=== PATIENT | male | born 1960 | race Caucasian/White ===

== ENCOUNTER 2018-01-12 14:19 | Outpatient (CLI) | payer BC ==
--- NOTE | 2018-01-12 15:56 | RAD ---
RIGHT SHOULDER ARTHROGRAM: HISTORY: A 57-year-old male with a history of right shoulder pain. Rotator cuff tear. M25.511. TECHNIQUE: Following informed consent, the right shoulder was prepped and draped in the usual sterile fashion. Local anesthesia was obtained with 1% Xylocaine. A 22 gauge spinal needle was introduced into the an terior-superior glenohumeral joint. A mixture of iodinated and Gadolinium contrast media was injecte d. Spot films confirmed an intraarticular location. The patient tolerated the procedure well and wa s moved to MRI for post arthrogram MRI to follow. No definite extension of contrast into the subacro mial bursa. Marked arthrosis changes of the AC joint. IMPRESSION: 1. Successful right shoulder arthrogram. 2. Marked arthrosis changes, right acromioclavicular joint. POS: [facility]
--- NOTE | 2018-01-12 16:47 | MRI ---
RIGHT SHOULDER MRI WITH POST ARTHROGRAM GADOLINIUM CONTRAST: Date: 01/12/18 HISTORY: 57-year-old male with history of right shoulder pain and loss of range of motion and strength for 4 m onths. Exam done following a right shoulder arthrogram. FINDINGS: Marked AC joint arthrosis changes are noted with prominent subchondral cystic changes and some abnorm al marrow signal in the distal clavicle and adjacent acromion with some downsloping of the anterior a cromion and mild downsloping of the lateral acromion. There is an irregular full thickness tear of th e supraspinatus tendon at the insertion with retraction back to the level of the humeral dome, as wel l as some associated delamination extending into the myotendinous region. Small low grade undersurfac e tear of the infraspinatus tendon at the insertion. There is some thickening and increased signal of the subscapularis tendon, evidence for some tendinopathy, with a possible very small low grade parti al thickness undersurface tear. The biceps tendon appears intact. There is some minimal abnormal incr eased signal involving the labral chondral junction region of the central and posterior labrum, evide nce for a SLAP type tear with some probable posterior extension, with some associated mild flattening and deformity of the posterior labrum. IMPRESSION: Full thickness, minimally retracted, supraspinatus tendon tear with some associated delamination. Sev ere arthrosis and degenerative changes of the AC joint. Probable SLAP tear with minimal posterior ext ension and some superior posterior labral free edge blunting. POS: [facility]
== END 2018-01-12 14:20 | disposition home or self-care (01) ==
LOC: RAD 14:19
PROVIDERS: ATTEND Orthopaedic Surgery
DX: M75.121 Complete rotator cuff tear or rupture of right shoulder, not specified as traumatic (principal); M19.011 Primary osteoarthritis, right shoulder
CPT/HCPCS: 23350

== ENCOUNTER 2018-01-27 15:36 | Outpatient (CLI) | payer BC ==
[2018-01-27 17:08] LABS: #Basophils 0.1 thou/uL (0.0-0.2); #Eosinphils 0.2 thou/uL (0.0-0.7); #Lymphocytes 2.1 thou/uL (1.20-3.40); #Monocytes 0.7 thou/uL (0.11-0.59); #Neutrophils 4.8 thou/uL (1.40-6.50); %Basophils 1.1 % (0.0-1.0); %Eosinophils 2.9 % (0.0-10.0); %Lymphocytes 26.3 % (21.0-51.0); %Monocytes 8.8 % (0.0-10.0); %Neutrophils 60.9 % (42.0-75.0); Hemoglobin 15.3 g/dL (14.0-18.0); Mean Corpuscular HGB CONC 33.9 g/dL (32.0-36.0); Mean Corpuscular Hemoglobin 30.4 pg (27.0-31.0); Mean Corpuscular Volume 89.5 fL (78.0-98.0); Mean Platelet Volume 8.1 fL (7.4-10.4); Platelet Count 224 thou/uL (130-400); RBC Distribution Width 11.7 % (11.5-14.5); Red Blood Cell (RBC) Count 5.03 mill/uL (4.70-6.10); White Blood Cell (WBC) Count 7.9 thou/uL (4.8-10.8)
[2018-01-27 17:33] LABS: Anion Gap 12 mmol/L (10-20); BUN (Urea Nitrogen) 27 mg/dL (8.4-25.7); Calc. Creatinine Clearance 0 mL/min (70-130); Calcium 10.3 mg/dL (7.8-10.44); Carbon Dioxide 28 mmol/L (22-29); Chloride 105 mmol/L (98-107); Estimated GFR-MDRD 51; Glucose 98 mg/dL (70-105); Potassium 4.2 mmol/L (3.5-5.1); Sodium 141 mmol/L (136-145)
--- NOTE | 2018-01-29 07:37 | EKG ---
Test Reason : Blood Pressure : / mmHG Vent. Rate : 077 BPM Atrial Rate : 077 BPM P-R Int : 156 ms QRS Dur : 096 ms QT Int : 370 ms P-R-T Axes : 044 004 042 degrees QTc Int : 418 ms Normal sinus rhythm with sinus arrhythmia Normal ECG When compared with ECG of 06-APR-2016 07:33, T wave inversion no longer evident in Inferior leads Confirmed by DR. He MCKINNEY ([id number]) on 01/29/2018 7:37:44 AM Referred By: DELMA Confirmed By:DR. He MCKINNEY
== END 2018-01-27 15:37 | disposition home or self-care (01) ==
LOC: LABBT 15:36
PROVIDERS: ATTEND Orthopaedic Surgery
DX: Z01.818 Encounter for other preprocedural examination (principal); M75.101 Unspecified rotator cuff tear or rupture of right shoulder, not specified as traumatic
CPT/HCPCS: 80048; 85025; 93005; 93010

== ENCOUNTER 2018-01-28 06:14 | Day surgery (SDC) | payer BC ==
[2018-01-27 16:02] VITALS: BMI 28.2
[2018-01-28] MEDS ORDERED: Ropivacaine 0.5% HCl/PF (150 MG/30 ML VIAL) ONE (06:38)
[2018-01-28] MEDS ORDERED: Fentanyl 100 MCG/2 ML VIAL ONE (06:38)
[2018-01-28] MEDS ORDERED: Midazolam HCl 2 mg/2 ml Vial ONE (06:38)
[2018-01-28] MEDS ORDERED: Ropivacaine 0.2% HCl/PF 20 ML ONE (06:38)
[2018-01-28] MEDS ORDERED: Lidocaine 1% (PF) 30 ML VIAL ONE (06:38)
[2018-01-28] MEDS ORDERED: Bupivacaine/Epinephrine 0.25% 30 ML VIAL ONE (06:45)
[2018-01-28] MEDS ORDERED: CEFAZOLIN/Water 2 GM/20 ML SYRINGE ONE (07:02)
[2018-01-28] MEDS ORDERED: Ketorolac Tromethamine 30 MG/ML VIAL IVP PRN (07:16)
[2018-01-28] MEDS ORDERED: traMADol HCl 50 MG TAB PO PRN ×2 (07:16)
[2018-01-28] MEDS ORDERED: Ropivacaine 0.2% 550 ML 550 ML NERVE BLCK SCH (07:16)
[2018-01-28] MEDS ORDERED: Promethazine HCl 25 MG/ML VIAL IM PRN (07:16)
[2018-01-28] MEDS ORDERED: Zolpidem Tartrate 5 MG TAB PO PRN (07:16)
[2018-01-28] MEDS ORDERED: Ondansetron HCl/PF 4 MG/2 ML Vial IVP PRN (07:16)
[2018-01-28] MEDS ORDERED: Fentanyl 100 MCG/2 ML VIAL IV PRN (07:16)
[2018-01-28] MEDS ORDERED: Vancomycin HCl 1.5 GM in Sodium Chloride 0.9% 250 ML 300 ML IVPB SCH (09:15)
--- NOTE | 2018-01-28 10:35 | OP ---
DATE OF PROCEDURE: 01/28/2018. PREOPERATIVE DIAGNOSES: Right shoulder impingement with rotator cuff tear, biceps tendon tear and in stability, and acromioclavicular joint arthritis. POSTOPERATIVE DIAGNOSES: Right shoulder impingement with rotator cuff tear, biceps tendon tear and i nstability, and acromioclavicular joint arthritis. PROCEDURES PERFORMED: 1. Right shoulder arthroscopy with subacromial decompression. 2. Arthroscopic rotator cuff repair. 3. Open distal clavicle excision. 4. Open biceps tenodesis. SURGEON: Pb Mckenzie M.D. QA TEST ANALYST: Robin Stovall PA-C. BLOOD LOSS: 100 mL COMPLICATIONS: None. ANESTHESIA: He had general anesthetic, he also had a block. IMPLANTS: For the rotator cuff tear, we just have some side to side repairing with sutures. For the biceps tenodesis, we used a BioComposite 7 x 23 Bio-Tenodesis screw. CONDITION: He did go to the recovery room in stable condition. INDICATIONS: A 57-year-old male who has failed nonoperative treatment and at this time, opted to hav e surgery. DESCRIPTION OF PROCEDURE: After all appropriate consent forms were explained and signed, he was take n back to the operating room and at this time was given a general anesthetic. Once local anesthesia was appropriate, the right shoulder was then prepped and draped in standard surgical fashion after ro lling him into the left lateral decubitus position. Kauffman bag was inflated to holding him in this pos ition and all bony prominences were well padded. The arm was suspended with 15 pounds in standard fa shion. Again, we then prepped and draped the right shoulder and upper extremity in standard and surg ical fashion. Bony anatomic landmarks were drawn out and the subacromial space was infiltrated with Marcaine with epinephrine. A posterior portal was established and the scope was placed into the shou lder joint. Anterior working portal was then made using a needle localization technique. Diagnostic arthroscopy commenced in the glenohumeral joint. Axillary pouch was free of any loose bodies. The humeral head and glenoid had normal appearing articular cartilage. The labrum had a superior labral tear as well as a small posterior labral tear. The anterior labrum and inferior labrum were in good condition. Subscapularis found the very top portion of this to be torn allowing the biceps to go ante riorly out of the groove. This was done dynamically under direct visualization. The biceps tendon w as also found to have some intratendinous tearing and wear and flattening as the biceps tendon exited the shoulder joint. Again, there also was a degenerative SLAP tear leading to instability as well. At this time, a green cannula was placed anteriorly and an 18 gauge needle was used to place a stitc h through the biceps tendon. The surface energy was then used to cut the biceps tendon off its super ior labral insertion. Shaver was used to debride this area and at this time, the scope was replaced in the subacromial space. Lateral working portal was made and bursa was removed from off the underly ing rotator cuff. The surface energy was used to outline the acromion as well as clean out the under surface of the AC joint. A needle was used to nathan this AC joint. A arlette was used to perform a deco mpression of the acromion all the way over to the clavicle. At this time, we had nice visualization of our cuff. There was a longitudinal split tear in the cuff, essentially at the area of the rotator interval and just behind this and beginning area of the supraspinatus and once this was cleaned out, essentially we had nice bony attachment anteriorly and posteriorly. The biceps tendon was visualize d underneath the anterior leaflet and we placed some side to side sutures to close our tear. Again, I thought it would be superfluous to place any bony anchors as our bony attachment I thought was very good and goldman. Once this was done, the scope was removed, the shoulder was drained. We then remov ed our needle using a 15 blade to cut down through skin. The Bovie was used to coagulate any brisk v enous bleeding. Full thickness periosteal flaps were taken to expose the distal clavicle. Hohmann r etractors were placed anteriorly and posteriorly and a saw was used to remove 1 cm of distal clavicle . The end of this was smoothed off with a rasp and a small amount of bone wax was placed onto the bl eeding cancellous bone. This area was then thoroughly irrigated and dried. Multiple interrupted Rian ryl sutures were used to close our periosteal sleeve. A 2-0 Vicryl and nylon sutures were used to cl ose the skin. At this time, we elongated our lateral working portal down through skin with a 15 blad e and the Bovie was used to coagulate any brisk venous bleeding. We then brought our suture out into the wound and we used this to find where we needed to cut our deltoid fascia. This was incised jaclyn ply and finger dissection was used to open the deltoid in line with its fibers. We were able to get down to the bicipital groove and at this time, the bicipital groove was opened up to expose the under lying tendon. Any brisk venous bleeding was coagulated. Tendon was brought out into the wound. The tendon was then sutured and the intra-articular portion was removed. We then placed our pin, reamed with a 7 mm reamer to a depth of 25 and placed our 7 x 23 BioComposite Bio-Tenodesis screw in standa rd fashion. Sutures were tied over top of this, so the screw could not back out. At this time, we t hen thoroughly irrigated and dried. We closed our deltoid fascia. We used 2-0 Vicryl and nylon sutu res again to close the skin. Bulky sterile dressing was applied to the arm. The patient was awakene d and taken to the recovery room in stable condition. All counts were correct at the end of the case and he did receive preoperative IV antibiotics.
== END 2018-01-28 13:00 | disposition home or self-care (01) ==
LOC: SDC 06:14
PROVIDERS: ATTEND Orthopaedic Surgery
PROC: 0RNJ4ZZ Release Right Shoulder Joint, Percutaneous Endoscopic Approach (ICD-10-PCS; principal; 2018-01-28)
PROC: 0LS10ZZ Reposition Right Shoulder Tendon, Open Approach (ICD-10-PCS; principal; 2018-01-28)
PROC: 0LQ14ZZ Repair Right Shoulder Tendon, Percutaneous Endoscopic Approach (ICD-10-PCS; principal; 2018-01-28)
DX: M75.121 Complete rotator cuff tear or rupture of right shoulder, not specified as traumatic (principal); M75.41 Impingement syndrome of right shoulder; M19.011 Primary osteoarthritis, right shoulder; S46.211A Strain of muscle, fascia and tendon of other parts of biceps, right arm, initial encounter; E11.9 Type 2 diabetes mellitus without complications; K21.9 Gastro-esophageal reflux disease without esophagitis; Z88.5 Allergy status to narcotic agent; Z88.8 Allergy status to other drugs, medicaments and biological substances; Z79.82 Long term (current) use of aspirin; Z79.899 Other long term (current) drug therapy; Z79.84 Long term (current) use of oral hypoglycemic drugs
CPT/HCPCS: A4306; C1713; J2001; J2250; J2795; J3010; J3370; J7050

== ENCOUNTER 2024-03-09 12:54 | Outpatient (CLI) | payer BC ==
[2024-03-09 13:57] LABS: #Basophils 0.05 10x3/uL (0.0-0.2); %Basophils 0.9 % (0.0-1.0); %Eosinophils 4.4 % (0.0-10.0); %Lymphocytes 30.1 % (21.0-51.0); %Monocytes 8.2 % (0.0-10.0); Hematocrit 44.3 % (42.0-52.0); Hemoglobin 15.9 g/dL (14.0-18.0); Mean Corpuscular HGB CONC 35.9 g/dL (32.0-36.0); Mean Corpuscular Hemoglobin 30.2 pg (27.0-31.0); Mean Corpuscular Volume 84.2 fL (78.0-98.0); Mean Platelet Volume 10.3 fL (7.4-10.4); Platelet Count 185 10x3/uL (130-400); RBC Distribution Width 12.1 % (11.5-14.5); Red Blood Cell (RBC) Count 5.26 mill/uL (4.70-6.10)
[2024-03-09 14:11] LABS: Anion Gap 11 mmol/L (10-20); BUN (Urea Nitrogen) 15 mg/dL (8.4-25.7); Calc. Creatinine Clearance 0 mL/min (70-130); Calcium 9.6 mg/dL (7.8-10.44); Carbon Dioxide 29 mmol/L (23-31); Chloride 104 mmol/L (98-107); Estimated GFR 90; Glucose 118 mg/dL (80-115); Potassium 4.1 mmol/L (3.5-5.1); Sodium 140 mmol/L (136-145)
== END 2024-03-09 12:55 | disposition home or self-care (01) ==
LOC: LABBT 12:54
PROVIDERS: ATTEND Orthopaedic Surgery
DX: Z01.818 Encounter for other preprocedural examination (principal); M24.9 Joint derangement, unspecified
CPT/HCPCS: 80048; 85025; 93005; 93010

== ENCOUNTER 2024-03-12 05:59 | Day surgery (SDC) | payer BC ==
[2024-03-09 13:24] VITALS: BMI 26.6
[2024-03-12] MEDS ORDERED: EPINEPHrine 1 MG/ML VIAL ONE (06:31)
[2024-03-12] MEDS ORDERED: Bupivacaine 0.25% HCL 30 ML VIAL ONE (06:31)
[2024-03-12] MEDS ORDERED: Midazolam HCl 2 mg/2 ml Vial ONE (06:45)
[2024-03-12] MEDS ORDERED: Lidocaine 1% (PF) 30 ML VIAL ONE (06:45)
[2024-03-12] MEDS ORDERED: Ropivacaine 0.2% HCl/PF 20 ML ONE (06:45)
[2024-03-12] MEDS ORDERED: fentaNYL 50 mcg/mL 1 mL Vial ONE (06:45)
[2024-03-12] MEDS ORDERED: Ropivacaine 0.5% HCl/PF (150 MG/30 ML VIAL) ONE (06:45)
[2024-03-12] MEDS ORDERED: CEFAZOLIN 2 GM VIAL ONE (07:01)
[2024-03-12] MEDS ORDERED: Sodium Chloride 0.9% 100 ML ONE (07:01)
[2024-03-12] MEDS ORDERED: Vancomycin (BATCH) 1.5 GM/300 ML BAG ONE (07:01)
[2024-03-12] MEDS ORDERED: traMADol HCl 50 MG TAB PO PRN ×2 (07:30)
[2024-03-12] MEDS ORDERED: Ondansetron PF 4 MG/2 ML Vial IVP PRN (07:30)
[2024-03-12] MEDS ORDERED: Promethazine HCl 25 MG/ML VIAL IM PRN (07:30)
[2024-03-12] MEDS ORDERED: Zolpidem Tartrate 5 MG TAB PO PRN (07:30)
[2024-03-12] MEDS ORDERED: Ropivacaine 0.2% 550 ML 550 ML NERVE BLCK SCH (07:30)
[2024-03-12] MEDS ORDERED: PROPOFOL 20 ML ONE (07:35)
[2024-03-12] MEDS ORDERED: Lidocaine 2% PF 5 ML VIAL ONE (07:35)
[2024-03-12] MEDS ORDERED: Dexamethasone 20 MG/5 ML VIAL ONE (08:16)
[2024-03-12] MEDS ORDERED: Ondansetron PF 4 MG/2 ML Vial ONE (08:16)
[2024-03-12] MEDS ORDERED: Ketorolac Tromethamine 30 MG (1 mL) VIAL ONE (08:16)
[2024-03-12] MEDS ORDERED: ePHEDrine Sulfate 50 MG/10 ML VIAL ONE (08:47)
== END 2024-03-12 11:50 | disposition home or self-care (01) ==
LOC: SDC 05:59
PROVIDERS: ATTEND Orthopaedic Surgery
PROC: 0RNK0ZZ Release Left Shoulder Joint, Open Approach (ICD-10-PCS; principal; 2024-03-12)
PROC: 0PT Upper Bones, Resection (ICD-10-PCS; principal; 2024-03-12)
DX: M75.102 Unspecified rotator cuff tear or rupture of left shoulder, not specified as traumatic (principal); M24.812 Other specific joint derangements of left shoulder, not elsewhere classified; K21.9 Gastro-esophageal reflux disease without esophagitis; E11.9 Type 2 diabetes mellitus without complications; F17.200 Nicotine dependence, unspecified, uncomplicated
CPT/HCPCS: A4306; A6223; C1713; C1894; J0171; J0665; J1100; J1885; J2250; J2405; J2704; J2795; J3010; J3370